=== PATIENT | female | born 1940 | race Caucasian/White ===

== ENCOUNTER → 2024-09-14 09:20 | Outpatient (REF) | payer OTHER, SELFPAY | LOC: RAD 09:20 | PROVIDERS: ATTENDING PHYSICIAN Internal Medicine Cardiovascular Disease; FAMILY PHYSICIAN Internal Medicine | DX: M79.605 Pain in left leg (principal) | CPT/HCPCS: 93971 ==

== ENCOUNTER 2024-12-07 12:19 | Emergency (ER) | payer OTHER, SELFPAY ==
[2024-12-07] VITALS (9 sets, daily range): BP systolic 106–125; BP diastolic 54–105; PULSE 86–102; BMI 29.7
--- NOTE | 2024-12-07 12:35 | ED.GENMED ---
History of Present Illness
General
Chief Complaint: Blood Pressure Problem
Source: patient and family (Daughter)
Exam Limitations: none
Time Seen by Provider: 12/07/24 12:35
History of Present Illness
History of Present Illness:
84-year-old female presents for low blood pressure at the cardiology office. She has no physical complaints that are acute. She denies lightheadedness weakness near syncope weakness with standing or any other acute complaints related to
hypotension. He has had significant weight loss over the last 3 to 4 months. She is on a diuretic and historically has been not totally compliant. However since living with her daughter in August she has been compliant. She also very much
restricts her fluid intake.
Past History
Past History
ED Past Medical History: Arrthythmia, CAD, HTN, Hypercholesterolemia and Other (Ischemic cardiomyopathy)
ED Past Surgical History: Cardiac (Pacemaker) and Other
Social History
Tobacco: Former smoker
Alcohol: Other
Drug: None
Personal:
Living: with family
Family History
Family History: Hypertension
Review of Systems
Review of Systems
All Other Systems: Not applicable
Constitutional: Denies fever or weight loss
Respiratory: Reports no symptoms
Cardiac: Reports no symptoms
ABD/GI: Reports no symptoms
Phy Exam
Physical Exam
Physical Exam:
GENERAL: Alert and oriented in no apparent distress
EYE: Orbits normal.
NECK: Supple, no significant adenopathy.
ENT: Pharynx without erythema
CARDIAC: Regular rate and rhythm without any obvious murmurs. Pacemaker left upper chest wall
LUNGS: Clear breath sounds,normal
ABDOMEN: Soft, without focal tenderness or distention
NEUROLOGICAL: Alert and oriented , weakness to the left lower leg. Difficulty straight leg raising plantar and dorsi flexion. This is chronic. Otherwise nonfocal.
SKIN: Warm and dry, no rash or lesion, no discoloration, skin intact.
MUSCULOSKELETAL: No edema,no deformity.Good color
PSYCH: Normal and appropriate interaction.
Course
Orders/Labs/Results
Orders:
Orders
12/07/24 12:28
EKG [Electrocardiogram (*1)] Urgent
Reason for Study: Fatigue / Weakness
EKG- Treatment ONCE
12/07/24 12:45
Orthostatic VS- Treatment ONCE
12/07/24 12:46
Add On- LAB Urgent
Tests Added?: tsh reflex t4
Nursing to Place Non Medication Order As Directed
Physician Order: weight please
Above order entered?: Yes
12/07/24 12:57
IV Insert/Care/Rem.- Treatment PRN
12/07/24 13:13
Complete Blood Count/With Diff Urgent
Comprehensive Metabolic Panel Urgent
TSH Reflex To Free T4 Urgent
12/07/24 14:15
0.9% Sodium Chloride 250 ml [Nss] 250 ml IV BOLUS
Abnormal Lab Results
12/07/24
13:13
RBC 3.95 L 10^6/uL
(4.20-5.40)
MCH 32.7 H pg
(27.0-31.0)
RDW 15.9 H %
(11.5-14.5)
MPV 11.8 H fL
(7.4-10.4)
Abs Immat Gran (auto) 0.1 H 10^3/uL
(0-0.05)
Absolute Lymphs (auto) 0.9 L 10^3/uL
(1.2-3.4)
Absolute Monos (auto) 0.8 H 10^3/uL
(0.1-0.6)
Immature Gran % 0.8 H %
(0-0.5)
Lymphocytes % 13.6 L %
(20.5-51.1)
Monocytes % 11.6 H %
(1.7-9.3)
BUN 47 H mg/dl
(7-17)
Creatinine 1.1 H mg/dL
(0.6-1.0)
Glucose 106 H mg/dl
(70-99)
12/07/24 13:13
12/07/24 13:13
Vital Signs
Initial and Last Documented VS:
Initial Vital Signs
Temp Pulse Resp BP Pulse Ox
97.7 F 95 18 124/73 98
12/07/24 12:25 12/07/24 12:25 12/07/24 12:25 12/07/24 12:25 12/07/24 12:25
Last Documented Vital Signs
Temp Pulse Resp BP Pulse Ox
97.7 F 79 16 115/65 98
12/07/24 12:25 12/07/24 16:15 12/07/24 16:15 12/07/24 16:00 12/07/24 16:00
MDM/Problems Addressed
Differential Diagnosis Includes:
Hypotension weight loss. At least partially fluid related likely. Clinically nontoxic and stable. Chronic weakness of the left lower extremity. Clinically not in heart failure. Lungs are clear. She has no lower extremity edema. Blood pressure
is good at triage. We will check labs interrogate her pacer. Orthostatic vital signs. Check thyroid
*Pulse Oximetry
Patient hypoxic: no
*EKG
Interpreted by ED Provider?: Yes
Interpretation: abnormal
Comparison EKG: changes noted
Heart Rate: 95
Rate: normal
Rhythm: sinus
[place]: left axis deviation
Interval: first degree heart block and long QT
Ischemia: other (Lateral T wave changes)
*Critical Care Note
Total Time (30-74mins, 75-104mins- exclusive of procedures): Not Applicable
Data Reviewed
Review of Other/Old Records Reveals: Labs, Records and Testing
Update Note
Update Note:
No acute device issues. Interrogation okay. Discussed with cardiology. Will give small fluid bolus, decrease her diuretic and follow-up.
ED Attending Note
-
Portions of this chart may have been created with voice recognition software.� Occasional wrong word or��sound alike� substitutions may have occurred due to the inherent limitations of voice recognition software.
Discharge Plan
Departure
Patient Disposition: Home (Routine Discharge)
Date of Disposition: 12/07/24
Time of Disposition: 15:20
Patient with high blood pressure during this ER visit?: No
Discharge Problem:
Prerenal dehydration, History of CHF
Prescriptions:
No Action
nitroglycerin 0.4 MG tablet, sublingual
0.4 mg sublingual [id number] PRN (Reason: angina)
aspirin 81 MG tablet,delayed release (DR/EC)
81 mg PO DAILY
spironolactone 25 MG tablet
25 mg PO DAILY
ascorbic acid (vitamin C) [Vitamin C] 500 MG tablet
1,000 mg PO DAILY
magnesium 250 MG tablet
250 mg PO DAILY
cinnamon bark [Cinnamon] 500 MG capsule
500 mg PO DAILY
cholecalciferol (vitamin D3) 2,000 UNITS tablet
4,000 units PO DAILY
Centrum 1 EACH tablet
1 ea PO DAILY
losartan 50 mg Tablet
50 mg PO DAILY
epinephrine 0.3 mg/0.3 mL Auto-Injector
0.3 mg IM ONCE PRN (Reason: bee stings)
furosemide 40 MG tablet
40 mg PO DAILY
potassium chloride [Klor-Con M20] 20 MEQ tablet,ER particles/crystals
20 meq PO DAILY
[place] 0.4 mg-300 mcg- 250 mcg Tablet
1 tab PO DAILY
Referrals:
Zo Woodson, DO [Family Provider] -
Activity Restrictions/Additional Instructions:
Increase your fluid intake as we discussed
Lasix dosing as per Dr. Brown. Very weight-based.
Follow-up closely with Dr. Tony and then with your primary physician
As I discussed, the weight loss may be multifactorial. You can follow this up with her primary physician
Return with any concerns including shortness of breath lightheadedness passing out persistent low blood pressure chest pain or any other concerning symptoms
Interventions
Interventions:
*Risk Screen - Suicide Last Done: 12/07/24 12:27
*General Assessment Last Done: 12/07/24 12:27
*Neglect/Abuse Screening Last Done: 12/07/24 12:27
*ED- Fall Risk Assessment Last Done: 12/07/24 14:00
*ED COVID-19 Vaccine History Last Done: 12/07/24 12:27
*Nursing Disposition Last Done: 12/07/24 16:35
ED- Cardiac Assessment Last Done: 12/07/24 13:30
ED- Neurological Assessment Last Done: 12/07/24 13:30
ED- Pulmonary Assessment Last Done: 12/07/24 13:30
Discharge Date and Time
Discharge Date/Time: 12/07/24 16:35
Print Language: ANGUILLAN
--- NOTE | 2024-12-07 12:43 | EDRN ---
Dr. Liang in room w/pt at this time.
[2024-12-07 13:24] LABS: % Basophils 0.5 % (0-2); % Eosinophils 1.7 % (0-6); % Immature Granulocytes 0.8 % (0-0.5); % Lymphocytes 13.6 % (20.5-51.1); % Monocytes 11.6 % (1.7-9.3); % Neutrophils 71.8 % (42.2-75.2); Absolute Eosinophils 0.1 10^3/uL (0-0.7); Absolute Immature Granulocytes 0.1 10^3/uL (0-0.05); Absolute Lymphocytes 0.9 10^3/uL (1.2-3.4); Absolute Monocytes 0.8 10^3/uL (0.1-0.6); Absolute Neutrophils 4.8 10^3/uL (1.4-6.5); Hematocrit 38.5 % (37.0-47.0); Hemoglobin 12.9 g/dL (12.0-16.0); Mean Corp Hgb Conc. 33.5 g/dL (33.0-37.0); Mean Corpuscular Hgb 32.7 pg (27.0-31.0); Mean Corpuscular Volume 97.5 fL (81.0-99.0); Mean Platelet Volume 11.8 fL (7.4-10.4); Nucleated Red Blood Cells % 0 %; Platelet Count 142 10^3/uL (130-400); Red Blood Cell Count 3.95 10^6/uL (4.20-5.40); Red Cell Dist. Width 15.9 % (11.5-14.5); White Blood Cell Count 6.6 10^3/uL (4.8-10.8)
--- NOTE | 2024-12-07 13:44 | EDRN ---
Orthostatic VS done. Results shown to Dr. Liang who was also informed about pt unable to lie flat and only able to tolerate 20-30 degree angle. Also that pt had tachypnea up to 40 BPM during each position lying, sitting and standing. Pt feeling
dizzy and lightheaded when standing but hyperventilating.
[2024-12-07 13:49] LABS: ALT (SGPT) 17 U/L (0-35); AST (SGOT) 24 U/L (14-36); Albumin 4.2 g/dl (3.5-5.0); Alkaline Phosphatase 72 U/L (38-126); Blood Urea Nitrogen 47 mg/dl (7-17); Calcium 9.7 mg/dl (8.4-10.2); Carbon Dioxide 24 mmol/L (22-30); Chloride 106 mmol/L (98-107); Glucose 106 mg/dl (70-99); Potassium 4.5 mmol/L (3.5-5.1); Sodium 143 mmol/L (135-145); Total Bilirubin 0.6 mg/dl (0.2-1.3); Total Protein 6.9 g/dl (6.3-8.2); eGFR 48.94
--- NOTE | 2024-12-07 14:50 | EDRN ---
Dr. Liang in to see pt.
[2024-12-07] MEDS: NSS 250 IV (15:06)
== END 2024-12-07 16:35 | disposition home or self-care (01) ==
LOC: EMR 12:19
PROVIDERS: Emergency Medicine; EMERGENCY PHYSICIAN Emergency Medicine; FAMILY PHYSICIAN Internal Medicine
DX: E86.0 Dehydration (principal); I25.10 Atherosclerotic heart disease of native coronary artery without angina pectoris; I11.0 Hypertensive heart disease with heart failure; I50.9 Heart failure, unspecified; E78.00 Pure hypercholesterolemia, unspecified; I25.5 Ischemic cardiomyopathy; Z82.49 Family history of ischemic heart disease and other diseases of the circulatory system; Z87.891 Personal history of nicotine dependence; Z95.0 Presence of cardiac pacemaker
CPT/HCPCS: 99283; 96360; 80053; 84443; 85025; 93005

== ENCOUNTER → 2025-02-06 09:08 | Outpatient (REF) | payer OTHER, SELFPAY ==
[2025-02-06 10:30] LABS: % Basophils 0.8 % (0-2); % Eosinophils 3.6 % (0-6); % Immature Granulocytes 0.5 % (0-0.5); % Lymphocytes 16.6 % (20.5-51.1); % Monocytes 11.9 % (1.7-9.3); % Neutrophils 66.6 % (42.2-75.2); Absolute Basophils 0.1 10^3/uL (0-0.2); Absolute Eosinophils 0.2 10^3/uL (0-0.7); Absolute Monocytes 0.7 10^3/uL (0.1-0.6); Absolute Neutrophils 4.1 10^3/uL (1.4-6.5); Hematocrit 33.2 % (37.0-47.0); Mean Corp Hgb Conc. 33.1 g/dL (33.0-37.0); Mean Corpuscular Hgb 34.2 pg (27.0-31.0); Mean Corpuscular Volume 103.1 fL (81.0-99.0); Mean Platelet Volume 12.1 fL (7.4-10.4); Nucleated Red Blood Cells % 0 %; Platelet Count 162 10^3/uL (130-400); Red Blood Cell Count 3.22 10^6/uL (4.20-5.40); Red Cell Dist. Width 13.9 % (11.5-14.5); White Blood Cell Count 6.1 10^3/uL (4.8-10.8)
[2025-02-06 10:37] LABS: Blood Urea Nitrogen 27 mg/dl (7-17); Carbon Dioxide 23 mmol/L (22-30); Chloride 114 mmol/L (98-107); Glucose 96 mg/dl (70-99); Magnesium 2.2 mg/dl (1.6-2.3); Sodium 142 mmol/L (135-145); eGFR 54.87
[2025-02-06 12:10] LABS: Glycohemoglobin (HgbA1c) 4.7 % (4.0-5.6)
== END ==
LOC: OLABN 09:08
PROVIDERS: ATTENDING PHYSICIAN Student in an Organized Health Care Education/Training Program
DX: I10 Essential (primary) hypertension (principal); E10.9 Type 1 diabetes mellitus without complications
CPT/HCPCS: 36415; 80048; 83036; 83735; 85025

== ENCOUNTER → 2025-02-21 12:18 | Outpatient (REF) | payer OTHER, SELFPAY ==
[2025-02-21 14:23] LABS: Blood Urea Nitrogen 25 mg/dl (7-17); Calcium 8.9 mg/dl (8.4-10.2); Carbon Dioxide 21 mmol/L (22-30); Chloride 113 mmol/L (98-107); Glucose 109 mg/dl (70-99); Magnesium 2.1 mg/dl (1.6-2.3); Potassium 4.0 mmol/L (3.5-5.1); Sodium 141 mmol/L (135-145); eGFR > 60.00
== END ==
LOC: OLABN 12:18
PROVIDERS: ATTENDING PHYSICIAN Student in an Organized Health Care Education/Training Program
DX: I10 Essential (primary) hypertension (principal)
CPT/HCPCS: 36415; 80048; 83735

== ENCOUNTER → 2025-02-28 10:07 | Outpatient (REF) | payer MEDICARE, SELFPAY ==
[2025-02-28 11:04] LABS: Hematocrit 32.9 % (37.0-47.0); Hemoglobin 10.7 g/dL (12.0-16.0); Mean Corp Hgb Conc. 32.5 g/dL (33.0-37.0); Mean Corpuscular Volume 100.9 fL (81.0-99.0); Nucleated Red Blood Cells % 0 %; Platelet Count 169 10^3/uL (130-400); Red Cell Dist. Width 13.3 % (11.5-14.5)
[2025-02-28 11:24] LABS: Blood Urea Nitrogen 25 mg/dl (7-17); Calcium 8.5 mg/dl (8.4-10.2); Carbon Dioxide 27 mmol/L (22-30); Chloride 107 mmol/L (98-107); Glucose 106 mg/dl (70-99); Potassium 3.7 mmol/L (3.5-5.1); Sodium 140 mmol/L (135-145); eGFR > 60.00
== END ==
LOC: OLABN 10:07
PROVIDERS: ATTENDING PHYSICIAN Student in an Organized Health Care Education/Training Program
DX: I10 Essential (primary) hypertension (principal); I50.22 Chronic systolic (congestive) heart failure; I25.10 Atherosclerotic heart disease of native coronary artery without angina pectoris; E11.65 Type 2 diabetes mellitus with hyperglycemia
CPT/HCPCS: 36415; 80048; 83880; 85025

== ENCOUNTER → 2025-04-27 13:42 | Outpatient (REF) | payer MEDICARE, SELFPAY ==
[2025-04-27 14:27] LABS: Hematocrit 38.9 % (37.0-47.0); Hemoglobin 13.0 g/dL (12.0-16.0); Mean Corp Hgb Conc. 33.4 g/dL (33.0-37.0); Mean Corpuscular Volume 96.0 fL (81.0-99.0); Nucleated Red Blood Cells % 0 %; Platelet Count 166 10^3/uL (130-400); Red Cell Dist. Width 14.2 % (11.5-14.5)
[2025-04-27 14:37] LABS: Blood Urea Nitrogen 30 mg/dl (7-17); Calcium 9.5 mg/dl (8.4-10.2); Carbon Dioxide 30 mmol/L (22-30); Chloride 105 mmol/L (98-107); Glucose 105 mg/dl (70-99); Potassium 4.3 mmol/L (3.5-5.1); Sodium 142 mmol/L (135-145); eGFR > 60.00
== END ==
LOC: OLABN 13:42
PROVIDERS: ATTENDING PHYSICIAN Student in an Organized Health Care Education/Training Program
DX: I50.22 Chronic systolic (congestive) heart failure (principal)
CPT/HCPCS: 80048; 83880; 85025

== ENCOUNTER → 2025-05-07 09:53 | Outpatient (REF) | payer MEDICARE, SELFPAY ==
[2025-05-07 11:54] LABS: Vitamin B12 523 pg/ml (239-931)
== END ==
LOC: OLABN 09:53
PROVIDERS: ATTENDING PHYSICIAN Student in an Organized Health Care Education/Training Program
DX: E53.9 Vitamin B deficiency, unspecified (principal); D51.9 Vitamin B12 deficiency anemia, unspecified; E53.1 Pyridoxine deficiency
CPT/HCPCS: 36415; 82607; 84207

== ENCOUNTER → 2025-06-05 13:54 | Outpatient (REF) | payer MEDICARE, SELFPAY ==
[2025-06-05 14:30] LABS: ALT (SGPT) 24 U/L (0-35); AST (SGOT) 26 U/L (14-36); Albumin 3.4 g/dl (3.5-5.0); Alkaline Phosphatase 67 U/L (38-126); HDL Cholesterol 46 mg/dl; LDL Cholesterol, Calculated 61 mg/dl; Total Protein 6.1 g/dl (6.3-8.2); Very Low Density Lipoprotein 12 mg/dl (0-30)
== END ==
LOC: OLABN 13:54
PROVIDERS: ATTENDING PHYSICIAN Student in an Organized Health Care Education/Training Program
DX: R94.5 Abnormal results of liver function studies (principal); E78.00 Pure hypercholesterolemia, unspecified; E78.2 Mixed hyperlipidemia
CPT/HCPCS: 36415; 80061; 80076

== ENCOUNTER 2025-06-09 01:35 | Emergency (ER) | payer MEDICARE, SELFPAY ==
[2025-06-09 01:38] VITALS: BP 143/80
[2025-06-09 01:43] LABS: Glucose - Point of Care 98 mg/dl (70-99)
[2025-06-09 01:55] LABS: Hematocrit 38.2 % (37.0-47.0); Hemoglobin 12.7 g/dL (12.0-16.0); Mean Corp Hgb Conc. 33.2 g/dL (33.0-37.0); Mean Corpuscular Volume 93.2 fL (81.0-99.0); Nucleated Red Blood Cells % 0 %; Platelet Count 147 10^3/uL (130-400); Red Cell Dist. Width 14.9 % (11.5-14.5)
[2025-06-09 02:00] VITALS: BMI 26.0
[2025-06-09 02:03] LABS: INR 1.06; PT 14.1 Sec (11.4-14.6)
[2025-06-09 02:11] LABS: ALT (SGPT) 24 U/L (0-35); AST (SGOT) 29 U/L (14-36); Albumin 3.8 g/dl (3.5-5.0); Alkaline Phosphatase 78 U/L (38-126); Blood Urea Nitrogen 33 mg/dl (7-17); Calcium 9.1 mg/dl (8.4-10.2); Carbon Dioxide 28 mmol/L (22-30); Chloride 106 mmol/L (98-107); Estimated Creatinine Clearance 41 ml/min; Glucose 102 mg/dl (70-99); Potassium 3.8 mmol/L (3.5-5.1); Sodium 141 mmol/L (135-145); Total Protein 6.8 g/dl (6.3-8.2); eGFR > 60.00
[2025-06-09 02:18] VITALS: BP 130/63
[2025-06-09 02:21] LABS: Troponin I 0.018 ng/ml
[2025-06-09 03:00] VITALS: BP 118/66
[2025-06-09 03:33] LABS: Urine Character Slightly Cloudy (Clear)
[2025-06-09 04:00] VITALS: BP 121/57
[2025-06-09 05:00] VITALS: BP 102/89
[2025-06-09 05:01] LABS: Urine Squamous Cell >30 /LPF (Few)
[2025-06-09 05:02] LABS: Troponin I 0.014 ng/ml
[2025-06-09 05:02] LABS: Urine White Cell >100 /HPF (0-5)
--- NOTE | 2025-06-09 05:17 | ED.GENMED ---
Addendum entered and electronically signed by Rochelle Otto PA-C 06/12/25 08:09:
Urine culture grew out >100,000 E.coli. Patient seen for chest pain. Patient called and denies any urinary symptoms. No indication for antibiotics for asymptomatic bacteriuria.
Original Note:
History of Present Illness
General
Chief Complaint: Chest Pain
Source: patient and family
Exam Limitations: none
Time Seen by Provider: 06/09/25 01:41
Nursing documentation reviewed up to this point in time: agreed with
History of Present Illness
History of Present Illness:
Note:
CHIEF COMPLAINT(S)
Chest pain and numbness in the left arm.
HISTORY OF PRESENT ILLNESS
The patient is an 85-year-old female who presents to the emergency department with chest pain and numbness in the left arm, as reported. The patient denies any weakness, confusion, or unusual symptoms occurring tonight. The patient has not
experienced any slurred speech or blurred vision. The patient reports that the administration of nitroglycerin was effective in alleviating her symptoms. During the cognitive evaluation, the patient was able to understand and respond accurately to
verbal instructions and imagery descriptions.
PHYSICAL EXAM
General: Alert, no acute distress.
Skin: Warm, dry.
Head: Normocephalic, atraumatic.
Neck: Supple, trachea midline.
Eye, Ears, Nose, Mouth and Throat: Oral mucosa moist.
Cardiovascular: Normal peripheral perfusion, No edema.
Respiratory: Respirations are non-labored.
Gastrointestinal: Abdomen nondistended.
Back: Normal range of motion, Normal alignment.
Musculoskeletal: Normal range of motion, normal strength.
Neurological: Alert and oriented to person, place, time, and situation, No focal neurological deficit observed.
Psychiatric: Cooperative, appropriate mood & affect.
PLAN
The plan includes monitoring the patient for any changes in symptoms, especially re-evaluation of cardiac status, considering the previous response to nitroglycerin.
DIFFERENTIAL DIAGNOSIS
The Differential Diagnosis includes, in no particular order and is not limited to:
1. Myocardial infarction troponins diminished
2. Angina pectoris
3. Stroke CT scans are negative.
4. Transient ischemic attack
5. Peripheral neuropathy
6. Anxiety or panic attack
7. Cervical radiculopathy
8. Aortic dissection
9. Pulmonary embolism
10. Gastroesophageal reflux disease (GERD)
Disposition:
SUMMARY OF ENCOUNTER
The patient is an 85-year-old female who presented to the emergency department with chest pain and numbness in the left arm. The patient reported that the numbness was likely due to lying on her left arm while sleeping. She denies current chest pain
and is now asymptomatic. The patient was accompanied by her son.
DISPOSITION
The patient is being discharged.
ASSESSMENT
The patients symptoms of chest pain and numbness in the left arm appear to be resolved. She is stable and asymptomatic at the time of discharge.
PLAN
The patient will be monitored for any recurrence of symptoms. She has a follow-up appointment with her blank driller, Dr. Brown, in two weeks.
PATIENT EDUCATION AND COUNSELING
Patient verbalized good understanding of discharge instructions and was educated on the importance of monitoring for any return of symptoms.
FOLLOW-UP INSTRUCTIONS
The patient is advised to follow up with Dr. Brown, the blank driller, in two weeks.
MEDICATION RECONCILIATION
Nitroglycerin was effective in alleviating symptoms.
MEDICAL DECISION MAKING
-Complexity of Data Reviewed: The potential diagnoses considered included myocardial infarction, angina pectoris, stroke, transient ischemic attack, peripheral neuropathy, anxiety or panic attack, cervical radiculopathy, aortic dissection, pulmonary
embolism, and gastroesophageal reflux disease (GERD).
-Data:
Category 1: Troponin levels were monitored and diminished over time. No acute life/organ-threatening processes identified.
Category 3: Discharge decision was influenced by discussion with nursing staff regarding patients symptom resolution and planned cardiology follow-up.
DIAGNOSIS
1. Chest pain, unspecified (ICD-10: R07.9)
Past History
Past History
ED Past Medical History: Arrthythmia, CAD, HTN, Hypercholesterolemia and Other (Ischemic cardiomyopathy)
ED Past Surgical History: Cardiac (Pacemaker) and Other
Social History
Tobacco: Former smoker
Alcohol: Other
Drug: None
Personal:
Living: with family
Family History
Family History: Hypertension
Phy Exam
Physical Exam
Physical Exam:
.
Scores
Heart Score for Chest Pain Patients
STEMI patient?: No
History: Slightly or Non-Suspicious
ECG: Normal
Age: >/= 65 years
Risk Factors: 1 or 2 Risk Factors
Troponin: </= Normal Limit
Heart Score for Chest Pain Patients: 3
Heart Score Risk: 2.5% MACE over next 6 weeks
Course
Orders/Labs/Results
Orders:
Orders
06/09/25 01:42
CT BRAIN PERF STROKE ALERT Urgent
Comment:
Reason For Exam: Left arm numbness/weakness
CT HEAD STROKE ALERT W/o Cont Urgent
Comment:
Reason For Exam: Left arm numbness/weakness
CT HEAD/NECK ANG STROKE ALERT Urgent
Comment:
Reason For Exam: Left arm numbness/weakness
Bedside Glucose- Treatment ONCE
Cardiac Monitoring- Treatment ONCE
06/09/25 01:44
Complete Blood Count/With Diff Urgent
Comprehensive Metabolic Panel Urgent
Erythrocyte Sed Rate Urgent
Prothrombin Time Urgent
Troponin I Urgent
06/09/25 03:17
Urinalysis Reflex To Culture Urgent
Date Specimen was Collected: 06/09/25
Time Specimen was Collected: 03:16
Urine Microscopic Reflex Cult Urgent
Urine Culture Urgent
ALBERTO Source: U
Specimen Description:
Date Specimen was Collected: 06/09/25
Time Specimen was Collected: 03:16
06/09/25 04:30
Troponin I Urgent
Abnormal Lab Results
06/09/25 06/09/25
01:44 03:17
RBC 4.10 L 10^6/uL
(4.20-5.40)
RDW 14.9 H %
(11.5-14.5)
MPV 12.4 H fL
(7.4-10.4)
Absolute Monos (auto) 0.7 H 10^3/uL
(0.1-0.6)
Monocytes % 10.0 H %
(1.7-9.3)
ESR 39 H mm/hour
(0-20)
BUN 33 H mg/dl
(7-17)
Glucose 102 H mg/dl
(70-99)
Ur Occult Blood Reflex 3+ A
(Negative)
Urine Nitrite (Reflex) Positive A
(Negative)
Leukocyte Esterase Rfl 3+ A
(Negative)
Urine WBC (Reflex) >100 A /HPF
(0-5)
Urine Bacteria (Reflex) Many A
(Negative)
Urine Albumin (Reflex) 2+ A
(Neg - Trace)
06/09/25 01:44
06/09/25 01:44
Vital Signs
Initial and Last Documented VS:
Initial Vital Signs
Temp Pulse Resp BP Pulse Ox
97.9 F 82 14 143/80 99
06/09/25 01:38 06/09/25 01:38 06/09/25 01:38 06/09/25 01:38 06/09/25 01:38
Last Documented Vital Signs
Temp Pulse Resp BP Pulse Ox
97.9 F 72 17 112/64 99
06/09/25 02:00 06/09/25 06:00 06/09/25 06:00 06/09/25 06:00 06/09/25 06:00
*Radiology
Radiology exam reviewed: radiology read reviewed
*Pulse Oximetry
SaO2: 99
Oxygen Mode of Delivery: Room air
Patient hypoxic: no
*Critical Care Note
Total Time (30-74mins, 75-104mins- exclusive of procedures): Not Applicable
ED Attending Note
-
Portions of this chart may have been created with voice recognition software.� Occasional wrong word or��sound alike� substitutions may have occurred due to the inherent limitations of voice recognition software.
Discharge Plan
Departure
Patient Disposition: Home (Routine Discharge)
Date of Disposition: 06/09/25
Time of Disposition: 05:27
Patient with high blood pressure during this ER visit?: No
Discharge Problem:
Chest pain
Instructions: Chest Pain CBC Follow Up
Prescriptions:
No Action
nitroglycerin 0.4 MG tablet, sublingual
0.4 mg sublingual [id number] PRN (Reason: angina)
ascorbic acid (vitamin C) [Vitamin C] 500 MG tablet
1,000 mg PO DAILY
Centrum 1 EACH tablet
1 ea PO DAILY
losartan 50 mg Tablet
50 mg PO DAILY
epinephrine 0.3 mg/0.3 mL Auto-Injector
0.3 mg IM ONCE PRN (Reason: bee stings)
furosemide 40 MG tablet
20 mg PO DAILY
potassium chloride [Klor-Con M20] 20 MEQ tablet,ER particles/crystals
20 meq PO .MWF
Referrals:
willimason [Other]
UNKNOWN - PT NOT,INTERVIEWE [Family Provider]
Jimenez Brown MD [Active, Cardiology] - Keep scheduled appt
Interventions
Interventions:
*Risk Screen - Suicide Last Done: 06/09/25 01:46
*General Assessment Last Done: 06/09/25 01:46
*Neglect/Abuse Screening Last Done: 06/09/25 01:46
*ED- Fall Risk Assessment Last Done: 06/09/25 01:46
*ED COVID-19 Vaccine History Last Done: 06/09/25 01:46
*ED Influenza Vaccine History Last Done: 06/09/25 01:46
*Nursing Disposition Last Done: 06/09/25 06:21
ED- Cardiac Assessment Last Done: 06/09/25 02:50
Discharge Date and Time
Discharge Date/Time: 06/09/25 06:22
Print Language: UPPER SORBIAN
[2025-06-09 06:00] VITALS: BP 112/64
== END 2025-06-09 06:22 | disposition home or self-care (01) ==
LOC: EMR 01:35
PROVIDERS: EMERGENCY PHYSICIAN Student in an Organized Health Care Education/Training Program
DX: R07.9 Chest pain, unspecified (principal); R20.0 Anesthesia of skin; E78.00 Pure hypercholesterolemia, unspecified; I10 Essential (primary) hypertension; I25.10 Atherosclerotic heart disease of native coronary artery without angina pectoris; I25.5 Ischemic cardiomyopathy; Z87.891 Personal history of nicotine dependence; Z95.0 Presence of cardiac pacemaker
CPT/HCPCS: 99284; 0042T; 70450; 70496; 70498; 80053; 81003; 81015; 82962; 84484; 85025; 85610; 85652; 87077; 87086; 87186; 93005; Q9967

== ENCOUNTER → 2025-08-16 11:00 | Outpatient (REF) | payer MEDICARE, SELFPAY ==
[2025-08-17 09:06] LABS: Urine Character Slightly Cloudy (Clear)
[2025-08-17 09:30] LABS: Urine Squamous Cell 16-20 /LPF (Few); Urine White Cell >100 /HPF (0-5)
== END ==
LOC: OLABN 11:00
PROVIDERS: ATTENDING PHYSICIAN Student in an Organized Health Care Education/Training Program
DX: R50.9 Fever, unspecified (principal)
CPT/HCPCS: 81003; 81015; 87086

== ENCOUNTER → 2025-08-20 09:17 | Outpatient (REF) | payer MEDICARE, SELFPAY ==
[2025-08-20 11:05] LABS: Urine Character Slightly Cloudy (Clear)
[2025-08-20 11:55] LABS: Urine Squamous Cell 16-20 /LPF (Few)
[2025-08-20 11:56] LABS: Urine Red Blood Cell 0-2 /HPF (0-2); Urine Urothelial Cell 0-2 /LPF (FEW); Urine White Cell 90-100 /HPF (0-5)
== END ==
LOC: OLABN 09:17
PROVIDERS: ATTENDING PHYSICIAN Student in an Organized Health Care Education/Training Program
DX: R50.9 Fever, unspecified (principal)
CPT/HCPCS: 81003; 81015; 87077; 87086